=== PATIENT | female | born 1955 | race Caucasian/White ===

== ENCOUNTER → 2017-10-09 | Outpatient (CLI) | payer BC ==
[2015-12-26 16:55] VITALS: BMI 37.2
[~2017-10-09] MED LIST: ALBU8.5H IH; AMLO-99 PO; ASPI-715 PO; BUDE10.2 INH; BUPR-121 PO; ENAL20TA99 PO; EZET1TAB55 PO; GLUC-125 PO; GLUC100026 PO; HUMALOG SC; LANI SQ; LIRA0.6P3 SQ; MELO-149 PO; METF-420 PO; PENI-24 PO; PER PO; PRED20TA6 PO; SIMV-49 PO; TIZA4CAP3 PO
--- NOTE | 2017-10-09 13:24 | RADIOLOGY IMAGING REPORT ---
[place] [facility] [place] Jenna Walsh : 1955 MR: [id number] V: [id number] EXAM DATE: ORDERING PHYSICIAN: MICHELLE LIN TECHNOLOGIST: Location: [facility] Patient: Jenna Walsh : 1955 Visit/Account:[id number] Date of Sevice: 10/09/2017 Study: KNEE 3 VIEWS BILATERAL Indication: Osteoarthritis Comparison study: None Findings: AP lateral and oblique views of both knees demonstrates the presence of moderate degenerati ve disease bilaterally. There is no evidence of significant suprapatellar effusion on either side. There is no evidence of lytic or blastic bony lesion on either side. There is a bony structure present within the anterior femoral tibial joint space of the right knee on the lateral view. There is a bony structure present within the right suprapatellar region. These fin dings are most consistent with loose bodies. There is narrowing of the medial right femoral tibial joint space. There is narrowing of the lateral femoral tibial joint space left knee. IMPRESSION: Moderate bilateral degenerative disease. No evidence of acute bony abnormality. There appear to be loose bodies within the right knee joint space. Report Dictated By: Fortino Jordan at 10/09/2017 1:13 PM Report E-Signed By: Fortino Jordan at 10/09/2017 1:19 PM WSN:[id number]
== END ==
LOC: RAD 12:36
PROVIDERS: ATTEND Nurse Practitioner Psychiatric/Mental Health
DX: M17.0 Bilateral primary osteoarthritis of knee (principal)